=== PATIENT | female | born 1955 | race Caucasian/White ===

== ENCOUNTER 2019-07-23 03:54 | Emergency (ER) | payer BC ==
[2019-07-23] MEDS ORDERED: IBUPROFEN 400 MG TABLET ONE (04:24)
--- NOTE | 2019-07-23 06:41 | NUR ---
REFER TO DOWNTIME FORM FOR DOCUMENTATION
== END 2019-07-23 06:41 | disposition home or self-care (01) ==
LOC: ER 03:54
DX: M62.838 Other muscle spasm (principal)